=== PATIENT | male | born 1940 | race Caucasian/White ===

== ENCOUNTER → 2016-12-22 | Outpatient (CLI) | payer MEDICARE, BC | LOC: COL.RAD 07:24 | DX: J18.1 Lobar pneumonia, unspecified organism (principal); J84.10 Pulmonary fibrosis, unspecified; K44.9 Diaphragmatic hernia without obstruction or gangrene; Z98.890 Other specified postprocedural states; Z95.4 Presence of other heart-valve replacement | CPT/HCPCS: Q9967 ==

== ENCOUNTER → 2020-12-19 | Outpatient (CLI) | payer MEDICARE, BC | LOC: COL.LAB 12:46 | DX: R91.8 Other nonspecific abnormal finding of lung field (principal); R63.4 Abnormal weight loss; R50.9 Fever, unspecified ==

== ENCOUNTER 2021-12-23 12:26 | Outpatient (RCR) | payer MEDICARE, BC | END 2021-12-24 | disposition home or self-care (01) | LOC: COL.CR | DX: Z48.812 Encounter for surgical aftercare following surgery on the circulatory system (principal); Z95.2 Presence of prosthetic heart valve ==

== ENCOUNTER 2022-01-01 15:13 | Outpatient (RCR) | payer MEDICARE, BC | END 2022-01-24 | disposition home or self-care (01) | LOC: COL.CR | DX: Z29.8 Encounter for other specified prophylactic measures (principal); Z95.2 Presence of prosthetic heart valve ==

== ENCOUNTER 2022-03-19 12:36 | Outpatient (RCR) | payer MEDICARE, BC | END 2022-03-19 12:38 | disposition still patient (30) | LOC: COL.CR 12:36 | DX: Z48.812 Encounter for surgical aftercare following surgery on the circulatory system (principal); Z95.2 Presence of prosthetic heart valve ==